=== PATIENT | female | born 1950 | race Caucasian/White ===

== ENCOUNTER → 2017-07-07 | Outpatient (CLI) | payer MEDICARE ==
[~2017-07-07] MED LIST: AMAN100C7 PO; AMOX-291 PO; ASCO-96 PO; ATOR40TA78 PO; CALC600T4 PO; CARB1TAB43 PO; CARB1TAB47 PO; CHOL100012 PO; DOCU-144 PO; LEVO50TA5 PO; OMEG1CAP34 PO; UBID100C24 PO
[2017-07-07 12:30] LABS: EPI LOT# 5695218
[2017-07-07 12:37] LABS: HCT (PFA) 43.7 % (34.6-47.8); PLATELET (PFA) 225 x10^3/uL (130-400)
[2017-07-07 12:38] LABS: HEMATOCRIT 43.1 % (34.6-47.8); HEMOGLOBIN 14.4 g/dL (11.7-16.4); WHITE BLOOD COUNT 7.2 x10^3/uL (3.4-10)
[2017-07-07 12:46] LABS: BLOOD UREA NITROGEN 20 mg/dL (7-18)
[2017-07-07 13:11] LABS: EPI CARTRIDGE 75 SECONDS (72-193)
[2017-07-07 15:34] LABS: PATH.CAST-FLAG NOT PRESENT; SPERM-FLAG NOT PRESENT; SRC-FLAG NOT PRESENT; XTAL-FLAG NOT PRESENT; YLC-FLAG NOT PRESENT
== END | disposition home or self-care (01) ==
LOC: STAR 11:09
PROVIDERS: ATTEND Neurological Surgery
DX: Z01.818 Encounter for other preprocedural examination (principal); G20 Parkinson's disease; R79.1 Abnormal coagulation profile; R82.79 Other abnormal findings on microbiological examination of urine
CPT/HCPCS: 36415; 71020; 80048; 81001; 85014; 85025; 85049; 85576; 85610; 85730; 87086; 93005

== ENCOUNTER 2017-07-20 05:23 | Day surgery (SDC) | payer MEDICARE ==
[2017-07-07 13:04] VITALS: BP 134/82
[~2017-07-20] VITALS: Ht 152.4 cm; Wt 54.0 kg
[2017-07-20] MEDS ORDERED: LIDOCAINE 1%, 2ML ONE (06:12)
[2017-07-20] MEDS ORDERED: LACTATED RINGERS 1,000 ML IV SCH (06:46)
[2017-07-20] MEDS ORDERED: BUPIVACAINE/PF 0.5% ONE (06:56)
[2017-07-20] MEDS ORDERED: BACITRACIN OINT 500U/GM, 15 GM ONE (06:56)
[2017-07-20] MEDS ORDERED: EPINEPHRINE 1 MG/ML, 1ML ONE (06:56)
[2017-07-20] MEDS ORDERED: LIDOCAINE 1%, 2ML SQ PRN (07:00)
[2017-07-20] MEDS ORDERED: FENTANYL PF 100 MCG/2ML ONE ×2 (07:15→09:02)
[2017-07-20] MEDS ORDERED: ONDANSETRON 2MG/ML, 2ML ONE (07:20)
[2017-07-20] MEDS ORDERED: PROPOFOL 10 MG/ML, 20ML ONE (07:20)
[2017-07-20] MEDS ORDERED: CEFAZOLIN 1,000 MG ONE (07:20)
[2017-07-20] MEDS ORDERED: BACITRACIN 50,000 UNIT IM ONE (07:40)
[2017-07-20] MEDS ORDERED: ONDANSETRON 2MG/ML, 2ML IVPush PRN (08:00)
[2017-07-20] MEDS ORDERED: FENTANYL PF 100 MCG/2ML IV PRN (08:00)
[2017-07-20] MEDS ORDERED: HYDROmorphone 1 MG/ML, 1ML IV PRN (08:00)
[2017-07-20] MEDS ORDERED: OXYcodone 5 MG/5 ML ORAL.SOL UDC PO PRN (08:00)
[2017-07-20] MEDS ORDERED: OXYcodone 5 MG/5 ML ORAL.SOL UDC ONE (09:02)
== END 2017-07-20 10:10 | disposition home or self-care (01) ==
LOC: OUT 05:23
PROVIDERS: ATTEND Neurological Surgery
DX: Z45.49 Encounter for adjustment and management of other implanted nervous system device (principal); G20 Parkinson's disease; Z98.890 Other specified postprocedural states
CPT/HCPCS: 61886; C1767; J0171; J0690; J2405; J2704; J3010; J3490; J7120

== ENCOUNTER → 2020-09-28 | Outpatient (CLI) | payer MEDICARE ==
[~2020-09-28] MED LIST changes: +ATOR10TA9 PO; +CALC200T3 PO; -CALC600T4 PO; +CALC600T60 PO
[2020-09-28 13:42] LABS: BASOPHILS % (AUTO) 1 % (0-1); EOSINOPHILS % (AUTO) 2 % (1-7); LYMPHOCYTES % (AUTO) 25 % (22-44); MEAN CORPUSCULAR HEMOGLOBIN 31.6 pg (27.0-34.8); MEAN CORPUSCULAR HGB CONC 33.3 g/dL (32.4-35.8); MEAN PLATELET VOLUME 8.3 fL (7.4-10.4); MONOCYTES % (AUTO) 8 % (2-9); NEUTROPHILS % (AUTO) 65 % (42-75); PLATELET COUNT 247 x10^3/uL (130-400); RED BLOOD COUNT 4.42 x10^6/uL (3.82-5.3); RED CELL DISTRIBUTION WIDTH 12.8 % (9.6-15.2)
[2020-09-28 13:46] LABS: MD NO
[2020-09-28 13:50] LABS: INTERNATIONAL NORMALIZED RATIO 1.01 (0.93-1.1); PROTHROMBIN TIME 10.7 Seconds (9.6-11.5)
[2020-09-28 13:51] LABS: CALCIUM 9.3 mg/dL (8.5-10.1); CREATININE 0.91 mg/dL (0.55-1.02)
[2020-09-28 14:07] LABS: ANION GAP 8 mmol/L (5-15); CHLORIDE 105 mmol/L (98-107)
== END | disposition home or self-care (01) ==
LOC: STAR 12:10
PROVIDERS: ATTEND Neurological Surgery
DX: Z01.818 Encounter for other preprocedural examination (principal); G20 Parkinson's disease; T85.199A Other mechanical complication of other implanted electronic stimulator of nervous system, initial encounter
CPT/HCPCS: 36415; 80048; 85025; 85610; 85730; 93005

== ENCOUNTER 2020-10-06 05:40 | Day surgery (SDC) | payer MEDICARE ==
[~2020-10-06] VITALS: Ht 152.4 cm; Wt 51.2 kg
[2020-10-06] MEDS ORDERED: LACTATED RINGERS 1,000 ML IV ONE (06:36)
[2020-10-06] MEDS ORDERED: CHLORHEXIDINE 15 ML UDC MM STA (06:36)
[2020-10-06 06:37] VITALS: BP 152/91
[2020-10-06] MEDS ORDERED: FENTANYL PF 100 MCG/2ML ONE (06:57)
[2020-10-06] MEDS ORDERED: BACITRACIN OINT 500U/GM, 15 GM ONE (07:12)
[2020-10-06] MEDS ORDERED: BUPIVACAINE/PF 0.5% ONE (07:12)
[2020-10-06] MEDS ORDERED: EPINEPHRINE 1 MG/ML, 1ML ONE (07:13)
[2020-10-06] MEDS ORDERED: BACITRACIN 50,000 UNIT ONE (07:13)
[2020-10-06] MEDS ORDERED: FENTANYL PF 100 MCG/2ML IV PRN (07:30)
[2020-10-06] MEDS ORDERED: ROCURONIUM 10 MG/ML,10ML ONE (07:39)
[2020-10-06] MEDS ORDERED: CEFAZOLIN 1,000 MG ONE (07:39)
[2020-10-06] MEDS ORDERED: PROPOFOL 10 MG/ML, 20ML ONE (07:39)
[2020-10-06] MEDS ORDERED: SUCCINYLCHOLINE 20 MG/ML, 10ML ONE (07:39)
[2020-10-06] MEDS ORDERED: DEXAMETHASONE 4 MG/ML, 1ML ONE (07:39)
== END 2020-10-06 10:40 | disposition home or self-care (01) ==
LOC: OUT 05:40
PROVIDERS: ATTEND Neurological Surgery
DX: Z45.42 Encounter for adjustment and management of neurostimulator (principal); G20 Parkinson's disease; E03.9 Hypothyroidism, unspecified; E78.00 Pure hypercholesterolemia, unspecified; Z20.828 Contact with and (suspected) exposure to other viral communicable diseases; Z79.890 Hormone replacement therapy; Z79.899 Other long term (current) drug therapy; Z83.3 Family history of diabetes mellitus; Z82.49 Family history of ischemic heart disease and other diseases of the circulatory system; Z99.3 Dependence on wheelchair
CPT/HCPCS: 61886; 87635; C1767; J0171; J0330; J0690; J1100; J2704; J3010; J7120